=== PATIENT | female | born 1995 | race American Indian/Alaskan Native ===

== ENCOUNTER 2016-10-02 03:36 | Emergency (ER) | payer MEDICAID ==
[2016-10-02 03:43] VITALS: BP 119/47
--- NOTE | 2016-10-02 03:47 | Emergency Department Report ---
HPI - General Chief Complaint: Dental/Oral Time Seen by Provider: 10/02/16 03:46 - HPI HPI: Patient here reported that she is having toothache to right lower back tooth. She said this started 3 weeks ago and is getting worse tonight. She says she went to a dentist in [place] and he started her on amoxicillin which she finished. He says that the dentist was supposed to call her back but he did not. She said she is going to call in the morning to set up an appointment to get her wisdom tooth pulled. She says she just finished the amoxicillin. Denies any swelling. Eyes any fever or chills. Denies any nasal congestion or sore throat. ED Past Medical Hx - Past Medical History Previous Medical History?: No Hx Hypertension: No Hx Congestive Heart Failure: No Hx Diabetes: No Hx Deep Vein Thrombosis: No Hx Renal Disease: No Hx Sickle Cell Disease: No Hx Seizures: No Hx Asthma: No Hx COPD: No Hx HIV: No - Surgical History Past Surgical History?: Yes Additional Surgical History: repair heart as baby. csection x2. - Family History Family history: no significant - Social History Smoking Status: Never Smoker Substance Use Type: None - Medications Home Medications: Home Medications Medication Instructions Recorded Confirmed Last Taken Type Vitamin 1 PO QDAY 10/06/15 10/05/15 History Acetaminophen/Codeine [Tylenol #3] 1 tab PO Q6H PRN #15 tab 10/02/16 Unknown Rx ED Review of Systems ROS: Stated complaint: TOOTHACHE Other details as noted in HPI Comment: All other systems reviewed and negative Constitutional: denies: chills, fever Eyes: denies: eye pain ENT: dental pain. denies: ear pain, throat pain, congestion Respiratory: no symptoms reported Cardiovascular: denies: chest pain, palpitations, edema, syncope Gastrointestinal: denies: abdominal pain, nausea, vomiting Musculoskeletal: denies: back pain, arthralgia Skin: denies: rash Neurological: denies: headache Physical Exam - Physical Exam Vital Signs: Vital Signs 10/02/16 03:40 Temperature 97.9 F Pulse Rate 75 Respiratory 18 Rate Blood Pressure 119/47 O2 Sat by Pulse 100 Oximetry General: This is a 20-year-old female well-nourished well-developed in no acute distress Physical Exam: Head: [Normocephalic atraumatic Mouth: Moist, no pharyngeal exudate or erythema. Uvula is midline and oral airway is patent. No gingival enlargement. Positive dental tenderness around tooth #32. Cellulitis noted. No facial swelling. No peritonsillar abscesses. Neck: Supple, no C-spine tenderness, no tracheal deviation. Nontender to palpate. no adenopathy Ears: Bilateral TMs pearly ruiz.bilateral EAC without any redness swelling or drainage Eyes: Bilateral pupils equal and reactive to light, bilateral EOM intact. Bilateral sclera and conjunctiva without injection. Normal accommodation Nose: Mucosa moist, normal mucosa maxillary and frontal sinus non-tender to palpate. Lungs: clear to auscultate bilaterally no rhonchi wheezes or rales. Normal work of breathing extremity; No CCE. +2 pulses. No neurovascular compromise Cardiovascular: S1-S2, regular rate rhythm. No murmurs. Skin: clean Dry and intact no rash no lesions Psych: Normal mood and behavior ED Course Vital Signs 10/02/16 03:40 Temperature 97.9 F Pulse Rate 75 Respiratory 18 Rate Blood Pressure 119/47 O2 Sat by Pulse 100 Oximetry - Reevaluation(s) Reevaluation #1: 10/02/16 03:54 Patient given [facility] 5/325 2 tablets in emergency room to manage toothache. 10/02/16 03:54 ED Medical Decision Making - Medical Decision Making ED course: Patient here reports toothache to right wisdom tooth. She has a dentist and will call later to schedule an appointment. She'll given Roper 5/ 325 mg 2 tablets emergency room to manage toothache. She just completed a course of amoxicillin and therefore there was no need for this to be repeated. Patient discharged home in stable condition with her family member with prescription for Tylenol 3 and to call her dentist later this morning to schedule appointment for further treatment and evaluation. Critical care attestation.: If time is entered above; I have spent that time in minutes in the direct care of this critically ill patient, excluding procedure time. ED Disposition Clinical Impression: Tooth ache Disposition: DISCHARGED TO HOME OR SELFCARE Is pt being admited?: No Does the pt Need Aspirin: No Condition: Stable Instructions: Toothache (ED) Prescriptions: Acetaminophen/Codeine [Tylenol #3] 1 tab PO Q6H PRN #15 tab PRN Reason: Toothache Referrals: Your, Dentist [Other] - 10/02/16 Forms: Accompanied Note, Work/School Release Form(ED)
[2016-10-02] MEDS ORDERED: NORCO 5/325 PO ONE (03:49)
== END 2016-10-02 04:15 | disposition home or self-care (01) ==
LOC: ED 03:36
DX: K08.89 Other specified disorders of teeth and supporting structures (principal)
CPT/HCPCS: 99282